=== PATIENT | male | born 1965 | race Caucasian/White ===

== ENCOUNTER 2016-10-08 19:33 | Emergency (ER) | payer OTHER ==
[~2016-10-08 19:33] MED LIST: ASPIRIN EC81 MG PO; HYDROCHLOROTH12.5 M1 PO; LOPRESSOR 25 MG25 MG PO; NITROSTAT0.4 MG SL; NORCO 7.5-3251 EACH PO; TYLENOL325 MG PO; ZESTRIL20 MG PO; ZOCOR20 MG PO
== END 2016-10-08 22:40 | disposition home or self-care (01) ==
LOC: ER1 19:33
DX: M50.11 Cervical disc disorder with radiculopathy, high cervical region (principal); G89.29 Other chronic pain; M54.9 Dorsalgia, unspecified; I10 Essential (primary) hypertension; E78.5 Hyperlipidemia, unspecified; J45.909 Unspecified asthma, uncomplicated; F17.210 Nicotine dependence, cigarettes, uncomplicated; Z79.899 Other long term (current) drug therapy
CPT/HCPCS: 72070; 72100; 72125; 96372; 99284; J1100; J1885